=== PATIENT | male | born 1980 | race African-American/Black ===

== ENCOUNTER 2019-06-03 12:51 | Emergency (ER) | payer MEDICAID ==
[~2019-06-03] VITALS: Ht 172.7 cm; Wt 97.5 kg
[2019-06-03 13:01] VITALS: Ht 172.7 cm; Wt 97.5 kg
[2019-06-03 13:40] VITALS: BP 126/78
== END 2019-06-03 13:40 | disposition home or self-care (01) ==
LOC: ED 12:51
DX: S21.211D Laceration without foreign body of right back wall of thorax without penetration into thoracic cavity, subsequent encounter (principal); S41.011D Laceration without foreign body of right shoulder, subsequent encounter; W45.8XXD Other foreign body or object entering through skin, subsequent encounter